=== PATIENT | female | born 1965 ===

== ENCOUNTER 2017-06-04 06:37 | Day surgery (SDC) | payer BC ==
[2017-06-04 07:06] VITALS: BMI 26.4
[2017-06-04] MEDS ORDERED: Propofol 10 mg/ml Inj (20 ML) ONE (08:11)
[2017-06-04] MEDS ORDERED: Lidocaine 1% Inj (20ml) ONE (08:11)
[2017-06-04] MEDS ORDERED: Atropine 0.4 mg/ml Inj (1 mL) ONE (08:14)
[2017-06-04] MEDS ORDERED: Sodium Chloride 0.9% 1,000 ML IV SCH (09:00)
[2017-06-04 09:37] VITALS: BP 95/52; PULSE 56; RESP 18; TEMP 97.5; O2SAT 100
== END 2017-06-04 10:21 | disposition home or self-care (01) ==
LOC: ENDO 06:37
PROVIDERS: ATTEND Internal Medicine Gastroenterology
DX: Z12.11 Encounter for screening for malignant neoplasm of colon (principal); K64.0 First degree hemorrhoids
CPT/HCPCS: 45378; J0461; J2704; J7040 ×2